=== PATIENT | male | born 1940 | race Caucasian/White ===

== ENCOUNTER 2016-10-13 12:20 | Inpatient (IN) | payer MEDICARE ==
[~2016-10-13] VITALS: Ht 177.8 cm; Wt 67.8 kg
[2016-10-13] MEDS ORDERED: ASPI81 PO (13:13)
[2016-10-13] MEDS ORDERED: DIGO125T PO (13:13)
[2016-10-13] MEDS ORDERED: ALLO100T PO (13:13)
[2016-10-13 13:32] LABS: GLUCOSE,POINT OF CARE 91 MG/DL (70-110)
[2016-10-13 15:11] LABS: BASOPHILS % (AUTO) 0.8 % (0.0-2.0); EOSINOPHILS % (AUTO) 1.8 % (1.0-6.0); HEMATOCRIT 25.5 % (41-53); HEMOGLOBIN 8.1 g/dL (13.5-17.5); LYMPHOCYTES # (AUTO) 1.6 K/uL (1.0-4.8); LYMPHOCYTES % (AUTO) 14.3 % (22.0-44.0); MEAN CORPUSCULAR HEMOGLOBIN 33.8 pg (26.0-34.0); MEAN CORPUSCULAR VOLUME 106 fL (80-100); MONOCYTES # (AUTO) 0.5 K/uL (0.1-1.0); MONOCYTES % (AUTO) 4.2 % (2.0-9.0); NEUTROPHILS # (AUTO) 8.6 K/uL (1.8-7.7); NEUTROPHILS % (AUTO) 78.9 % (40.0-70.0); PLATELET COUNT (AUTO) 227 K/uL (150-450); RED BLOOD CELL COUNT(AUTO) 2.41 MIL/uL (4.50-5.90); RED CELL DISTRIBUTION WIDTH 15.1 % (11.5-14.5); WHITE BLOOD COUNT (AUTO) 10.9 K/uL (4.5-11.0)
[2016-10-13 15:28] LABS: RBC MORPHOLOGY COMMENT ABNORMAL RBC MORPH
[2016-10-13 15:36] LABS: ANION GAP 9 mmol/L (8-16); CALCIUM, TOTAL 8.7 mg/dL (8.8-10.5); CARBON DIOXIDE 27 mmol/L (22-29); CHLORIDE 100 mmol/L (98-107); CREATININE 1.16 mg/dL (0.60-1.30); GLOMERULAR FILTR. RATE CALC > 60 mL/min (>60); SODIUM SERUM 136 mmol/L (136-145); UREA NITROGEN, BLOOD 21 mg/dL (7-18)
[2016-10-13 15:43] LABS: ALANINE AMINOTRANSFERASE 12 U/L (12-78); ALBUMIN 2.1 g/dL (3.4-5.0); ASPARTATE AMINOTRANSFERASE 56 U/L (15-37); BILIRUBIN,TOTAL 1.9 mg/dL (0.1-1.0); CREATINE KINASE, TOTAL 42 U/L (39-308); TOTAL PROTEIN, SERUM 6.2 g/dL (6.4-8.2)
[2016-10-13 15:51] LABS: B-TYPE NATRIURETIC PEPTIDE 408 pg/mL (0-100)
[2016-10-13] MEDS ORDERED: SODIUM CHLORIDE 0.9% 1,000 ML IV ONE ×2 (15:57→16:30)
[2016-10-13] MEDS ORDERED: LORazepam 1 MG TABLET PO ONE (16:30)
[2016-10-13] MEDS ORDERED: DIGOXIN 250 MCG/ML 2 ML AMP IVP ONE ×2 (16:45→18:45)
[2016-10-13] MEDS ORDERED: ACETAMINOPHEN 325 MG TABLET PO PRN ×2 (17:00→22:45)
[2016-10-13] MEDS ORDERED: ONDANSETRON HCL 4 MG/2 ML VIAL IVP PRN ×2 (17:00→22:45)
[2016-10-13] MEDS ORDERED: 0.9% SODIUM CHLORIDE 10 ML SYRINGE IVP PRN ×2 (17:00→22:45)
[2016-10-13 18:16] LABS: DIGOXIN < 0.20 ng/mL (0.90-2.00)
[2016-10-13 18:26] LABS: APPEARANCE,URINE CLEAR (CLEAR); GLUCOSE, URINE (UA) NEGATIVE (NEGATIVE); KETONES,URINE TRACE mg/dL (NEGATIVE); LEUKOCYTE ESTERASE ,URINE SMALL (NEGATIVE); OCCULT BLOOD,URINE NEGATIVE (NEGATIVE); PROTEIN,URINE TRACE (NEGATIVE)
[2016-10-13 18:31] LABS: ADD UA MICROSCOPIC YES
[2016-10-13 19:41] VITALS: BP 96/75
[2016-10-13] MEDS ORDERED: ZOLP5TAB2 PO (20:02)
[2016-10-13] MEDS: ZOLPIDEM TARTRATE 5 MG TABLET PO SCH (21:00)
[2016-10-13] MEDS: ALLOPURINOL 100 MG TABLET PO SCH (21:54)
[2016-10-13] MEDS: ZOLPIDEM TARTRATE 10 MG TABLET PO PRN (21:54)
[2016-10-13] MEDS: ASPIRIN 81 MG CHEWABLE TABLET PO SCH (21:55)
[2016-10-13] MEDS: DIGOXIN 125 MCG TABLET PO SCH (21:55)
[2016-10-13] MEDS ORDERED: OxyCODONE HCL/ACETAMINOPHEN 5-325 MG TABLET PO PRN ×2 (22:45)
[2016-10-13] MEDS ORDERED: MAGNESIUM HYDROXIDE SUSPENSION 30 ML UDCUP PO PRN (22:45)
[2016-10-13] MEDS: SODIUM CHLORIDE 0.9% 1,000 ML IV SCH (22:45)
[2016-10-13] MEDS: DOCUSATE SODIUM 100 MG CAPSULE PO SCH (22:45)
[2016-10-13 23:38] VITALS: BP 100/51
[2016-10-14 04:34] VITALS: BP 115/74
[2016-10-14 06:49] LABS: BASOPHILS % (AUTO) 0.7 % (0.0-2.0); EOSINOPHILS % (AUTO) 3.2 % (1.0-6.0); HEMATOCRIT 23.4 % (41-53); HEMOGLOBIN 7.5 g/dL (13.5-17.5); LYMPHOCYTES # (AUTO) 1.5 K/uL (1.0-4.8); LYMPHOCYTES % (AUTO) 14.7 % (22.0-44.0); MEAN CORPUSCULAR HEMOGLOBIN 33.8 pg (26.0-34.0); MEAN CORPUSCULAR HGB CONC 32.1 G/dL (31.0-37.0); MEAN CORPUSCULAR VOLUME 105 fL (80-100); MONOCYTES # (AUTO) 0.6 K/uL (0.1-1.0); MONOCYTES % (AUTO) 5.8 % (2.0-9.0); NEUTROPHILS # (AUTO) 7.6 K/uL (1.8-7.7); NEUTROPHILS % (AUTO) 75.6 % (40.0-70.0); PLATELET COUNT (AUTO) 214 K/uL (150-450); RED BLOOD CELL COUNT(AUTO) 2.22 MIL/uL (4.50-5.90); RED CELL DISTRIBUTION WIDTH 14.8 % (11.5-14.5)
[2016-10-14 07:02] LABS: ANION GAP 7 mmol/L (8-16); CARBON DIOXIDE 26 mmol/L (22-29); CHLORIDE 101 mmol/L (98-107); CREATININE 1.09 mg/dL (0.60-1.30); GLOMERULAR FILTR. RATE CALC > 60 mL/min (>60); POTASSIUM 4.1 mmol/L (3.5-5.1); SODIUM SERUM 134 mmol/L (136-145); UREA NITROGEN, BLOOD 19 mg/dL (7-18)
[2016-10-14 07:06] LABS: RBC MORPHOLOGY COMMENT ABNORMAL RBC MORPH
[2016-10-14 07:43] VITALS: BP 106/67
[2016-10-14 08:27] LABS: THYROID STIMULATING HORMONE 2.97 uIU/mL (0.36-3.74)
[2016-10-14] MEDS: PANTOPRAZOLE SODIUM 40 MG/VIAL IVP SCH (08:50)
[2016-10-14] MEDS: DOCUSATE SODIUM 100 MG CAPSULE PO SCH ×2 (08:50→20:32)
[2016-10-14] MEDS: SODIUM CHLORIDE 0.9% 1,000 ML IV SCH ×2 (08:50→18:49)
[2016-10-14] MEDS: ASPIRIN 81 MG CHEWABLE TABLET PO SCH (08:50)
[2016-10-14] MEDS: DIGOXIN 125 MCG TABLET PO SCH (08:51)
[2016-10-14] MEDS: ALLOPURINOL 100 MG TABLET PO SCH (08:51)
[2016-10-14 11:58] VITALS: BP 101/60
[2016-10-14] MEDS ORDERED: ZOLP10 PO (14:01)
[2016-10-14 15:26] VITALS: BP 105/50
[2016-10-14] MEDS ORDERED: DIGOXIN 125 MCG TABLET PO ONE (16:30)
[2016-10-14 19:44] VITALS: BP 102/63
[2016-10-14] MEDS: ZOLPIDEM TARTRATE 5 MG TABLET PO SCH (20:32)
[2016-10-14 23:48] VITALS: BP 107/59
[2016-10-15 04:50] VITALS: BP 101/63
[2016-10-15] MEDS: SODIUM CHLORIDE 0.9% 1,000 ML IV SCH ×2 (05:01→20:51)
[2016-10-15 07:10] VITALS: BP 110/73
[2016-10-15] MEDS: MULTIVITAMINS WITH MINERALS, THERAPEUTIC TABLET PO SCH (09:24)
[2016-10-15] MEDS: DOCUSATE SODIUM 100 MG CAPSULE PO SCH ×2 (09:24→20:50)
[2016-10-15] MEDS: DIGOXIN 125 MCG TABLET PO SCH (09:25)
[2016-10-15] MEDS: ALLOPURINOL 100 MG TABLET PO SCH (09:25)
[2016-10-15] MEDS: ASPIRIN 81 MG CHEWABLE TABLET PO SCH (09:25)
[2016-10-15] MEDS: PANTOPRAZOLE SODIUM 40 MG/VIAL IVP SCH (09:25)
[2016-10-15 12:07] VITALS: BP 113/44
[2016-10-15 15:58] VITALS: BP 106/71
[2016-10-15 19:49] VITALS: BP 105/57
[2016-10-15] MEDS: ZOLPIDEM TARTRATE 5 MG TABLET PO SCH (20:50)
[2016-10-15] MEDS: CARVEDILOL 6.25 MG TABLET PO SCH (20:57)
[2016-10-16] VITALS (7 sets, daily range): BP systolic 90–143; BP diastolic 47–82
[2016-10-16] MEDS: SODIUM CHLORIDE 0.9% 1,000 ML IV SCH (05:45)
[2016-10-16] MEDS: DIGOXIN 125 MCG TABLET PO SCH (08:05)
[2016-10-16] MEDS: DOCUSATE SODIUM 100 MG CAPSULE PO SCH ×2 (08:05→22:18)
[2016-10-16] MEDS: ASPIRIN 81 MG CHEWABLE TABLET PO SCH (08:05)
[2016-10-16] MEDS: ALLOPURINOL 100 MG TABLET PO SCH (08:05)
[2016-10-16] MEDS: CARVEDILOL 6.25 MG TABLET PO SCH (08:05)
[2016-10-16] MEDS: PANTOPRAZOLE SODIUM 40 MG/VIAL IVP SCH (08:05)
[2016-10-16] MEDS: MULTIVITAMINS WITH MINERALS, THERAPEUTIC TABLET PO SCH (08:05)
[2016-10-16 09:33] LABS: BASOPHILS # (AUTO) 0.02 K/uL (0.00-0.20); BASOPHILS % (AUTO) 0.2 % (0.0-2.0); EOSINOPHILS # (AUTO) 0.23 K/uL (0.00-0.70); HEMATOCRIT 23.9 % (41-53); HEMOGLOBIN 7.7 g/dL (13.5-17.5); LYMPHOCYTES # (AUTO) 1.1 K/uL (1.0-4.8); MEAN CORPUSCULAR HEMOGLOBIN 33.7 pg (26.0-34.0); MEAN CORPUSCULAR HGB CONC 32.3 G/dL (31.0-37.0); MEAN CORPUSCULAR VOLUME 104 fL (80-100); MONOCYTES # (AUTO) 0.6 K/uL (0.1-1.0); MONOCYTES % (AUTO) 6.9 % (2.0-9.0); NEUTROPHILS # (AUTO) 6.6 K/uL (1.8-7.7); NEUTROPHILS % (AUTO) 77.2 % (40.0-70.0); PLATELET COUNT (AUTO) 217 K/uL (150-450); RED BLOOD CELL COUNT(AUTO) 2.29 MIL/uL (4.50-5.90); WHITE BLOOD COUNT (AUTO) 8.6 K/uL (4.5-11.0)
[2016-10-16 09:36] LABS: ANION GAP 6 mmol/L (8-16); CALCIUM, TOTAL 7.9 mg/dL (8.8-10.5); CARBON DIOXIDE 25 mmol/L (22-29); CHLORIDE 106 mmol/L (98-107); CREATININE 0.99 mg/dL (0.60-1.30); GLOMERULAR FILTR. RATE CALC > 60 mL/min (>60); POTASSIUM 4.7 mmol/L (3.5-5.1); SODIUM SERUM 137 mmol/L (136-145); UREA NITROGEN, BLOOD 16 mg/dL (7-18)
[2016-10-16] MEDS: AMIODARONE HCL 200 MG TABLET PO SCH ×2 (17:03→22:19)
[2016-10-16] MEDS: FERROUS SULFATE 325 MG EC TABLET PO SCH (17:03)
[2016-10-16] MEDS: ZOLPIDEM TARTRATE 5 MG TABLET PO SCH (21:00)
[2016-10-16] MEDS: ZOLPIDEM TARTRATE 10 MG TABLET PO PRN (22:18)
[2016-10-17] MEDS: CARVEDILOL 6.25 MG TABLET PO SCH ×2 (00:48→07:55)
[2016-10-17 04:43] VITALS: BP 106/65
[2016-10-17] MEDS ORDERED: IPRATROPIUM BROMIDE 0.5 MG/2.5 ML NEB SOLUTION NEB PRN (07:00)
[2016-10-17] MEDS ORDERED: ALBUTEROL SULFATE 2.5 MG/0.5 ML NEB SOLUTION NEB SCH (07:00)
[2016-10-17] MEDS ORDERED: ALBUTEROL SULFATE 2.5 MG/0.5 ML NEB SOLUTION NEB PRN (07:00)
[2016-10-17] MEDS ORDERED: IPRATROPIUM BROMIDE 0.5 MG/2.5 ML NEB SOLUTION NEB SCH (07:00)
[2016-10-17 07:13] LABS: BASOPHILS # (AUTO) 0.05 K/uL (0.00-0.20); BASOPHILS % (AUTO) 0.5 % (0.0-2.0); EOSINOPHILS # (AUTO) 0.25 K/uL (0.00-0.70); EOSINOPHILS % (AUTO) 2.66 % (1.0-6.0); HEMOGLOBIN 7.5 g/dL (13.5-17.5); LYMPHOCYTES # (AUTO) 1.1 K/uL (1.0-4.8); LYMPHOCYTES % (AUTO) 11.9 % (22.0-44.0); MEAN CORPUSCULAR HEMOGLOBIN 34.2 pg (26.0-34.0); MEAN CORPUSCULAR HGB CONC 32.7 G/dL (31.0-37.0); MEAN CORPUSCULAR VOLUME 105 fL (80-100); MONOCYTES # (AUTO) 0.6 K/uL (0.1-1.0); MONOCYTES % (AUTO) 6.5 % (2.0-9.0); NEUTROPHILS # (AUTO) 7.2 K/uL (1.8-7.7); NEUTROPHILS % (AUTO) 78.4 % (40.0-70.0); PLATELET COUNT (AUTO) 195 K/uL (150-450); WHITE BLOOD COUNT (AUTO) 9.2 K/uL (4.5-11.0)
[2016-10-17 07:15] LABS: ANION GAP 6 mmol/L (8-16); CALCIUM, TOTAL 8.2 mg/dL (8.8-10.5); CARBON DIOXIDE 26 mmol/L (22-29); CHLORIDE 105 mmol/L (98-107); CREATININE 1.02 mg/dL (0.60-1.30); GLOMERULAR FILTR. RATE CALC > 60 mL/min (>60); POTASSIUM 4.8 mmol/L (3.5-5.1); SODIUM SERUM 137 mmol/L (136-145); UREA NITROGEN, BLOOD 20 mg/dL (7-18)
[2016-10-17 07:39] VITALS: BP 120/53
[2016-10-17] MEDS: AMIODARONE HCL 200 MG TABLET PO SCH ×2 (07:55→16:10)
[2016-10-17] MEDS: ALLOPURINOL 100 MG TABLET PO SCH (07:55)
[2016-10-17] MEDS: DOCUSATE SODIUM 100 MG CAPSULE PO SCH (07:55)
[2016-10-17] MEDS: ASPIRIN 81 MG CHEWABLE TABLET PO SCH (07:55)
[2016-10-17] MEDS: PANTOPRAZOLE SODIUM 40 MG/VIAL IVP SCH (07:56)
[2016-10-17] MEDS: MULTIVITAMINS WITH MINERALS, THERAPEUTIC TABLET PO SCH (07:56)
[2016-10-17] MEDS: DIGOXIN 125 MCG TABLET PO SCH (07:56)
[2016-10-17] MEDS: FERROUS SULFATE 325 MG EC TABLET PO SCH (07:56)
[2016-10-17 08:37] LABS: RBC MORPHOLOGY COMMENT ABNORMAL RBC MORPH
[2016-10-17 11:07] VITALS: BP 104/60
[2016-10-17 15:14] VITALS: BP 96/51
[2016-10-17] MEDS ORDERED: AMIO200T44 PO (15:31)
== END 2016-10-17 17:45 | DRG 308 ==
LOC: EMS 12:22 → 5S 17:10
PROVIDERS: ADMIT Internal Medicine; ATTEND Internal Medicine
DX: I48.91 Unspecified atrial fibrillation (principal); E43 Unspecified severe protein-calorie malnutrition; E86.0 Dehydration; D64.9 Anemia, unspecified; M10.9 Gout, unspecified; M19.90 Unspecified osteoarthritis, unspecified site; R62.7 Adult failure to thrive; I49.5 Sick sinus syndrome; D53.9 Nutritional anemia, unspecified; F17.210 Nicotine dependence, cigarettes, uncomplicated; Z74.01 Bed confinement status; Z79.899 Other long term (current) drug therapy; Z79.82 Long term (current) use of aspirin; Z90.49 Acquired absence of other specified parts of digestive tract; Z68.21 Body mass index [BMI] 21.0-21.9, adult; Z91.19 Patient's noncompliance with other medical treatment and regimen; Z95.810 Presence of automatic (implantable) cardiac defibrillator
CPT/HCPCS: 82962; 83605; 84443; 93005; 93306; 96361; 96374; 97161; 99291; C9113; J1160; J7030